=== PATIENT | male | born 1955 | race African-American/Black ===

== ENCOUNTER 2019-05-27 16:37 | Inpatient (IN) ==
[2019-05-27] MEDS ORDERED: 0.9 % Sodium Chloride 500 ML IVC ONE (16:43)
[2019-05-27] MEDS ORDERED: Ondansetron 4 MG/2 ML VIAL IVP ONE (16:43)
[2019-05-27 17:30] LABS: Basophils % 0.3 %; Eosinophils % 0.5 %; Hematocrit 22.2 % (37.5-50.1); Hemoglobin 6.8 g/dL (12.9-16.9); Immature Granulocytes % 0.7 % (0-4); Lymphocytes # 0.9 K/mcL (0.6-4.6); Mean Corpuscular HGB Conc 30.6 g/dL (31.6-35.5); Mean Corpuscular Hemoglobin 29.7 pg (28.0-33.3); Mean Corpuscular Volume 96.9 fL (83.0-100.0); Mean Platelet Volume 11.9 fL (9.4-12.4); Monocytes # 0.4 K/mcL (0.0-1.3); Monocytes % 5.9 %; Neutrophils # 4.5 K/mcL (1.6-8.9); Nucleated Red Blood Cells 1.7 /100 WBC (0); Platelet Count 231 K/mcL (140-400); Red Blood Count 2.29 M/mcL (4.19-5.50); Red Cell Distribution Width 18.4 % (11.5-14.5); Segmented Neutrophils % 76.6 %; White Blood Count 5.9 K/mcL (4.3-11.1)
[2019-05-27] MEDS ORDERED: *HR* Midazolam HCl 2 MG/2 ML VIAL IVP ONE (17:42)
[2019-05-27 17:53] LABS: Alanine Aminotransferase 21 Units/L (7-52); Albumin 3.7 g/dL (3.5-5.7); Albumin/Globulin Ratio 1.1 (1.1-2.2); Alkaline Phosphatase 61 Units/L (34-104); Aspartate Amino Transferase 19 Units/L (13-39); BUN/Creatinine Ratio 29 (6-26); Bilirubin,Direct 0.9 mg/dL (0.0-0.2); Bilirubin,Indirect 2.9 mg/dL (0.0-1.0); Bilirubin,Total 3.8 mg/dL (0.3-1.0); Blood Urea Nitrogen 32 mg/dL (8-23); Carbon Dioxide 15 mEq/L (23-29); Chloride 102 mEq/L (98-107); Globulin 3.5 g/dL (2.4-3.5); Glucose 140 mg/dL (70-105); Lipase 20 Units/L (11-82); Osmolality,Calculated 287 (280-300); Potassium 3.3 mEq/L (3.5-5.1); Sodium 134 mEq/L (136-145); Total Protein 7.2 g/dL (6.4-8.9); Troponin I < 0.03 ng/mL (< 0.04); eGFR For African Americans > 60 (> 60); eGFR For Non-African Americans > 60 (> 60)
[2019-05-27] MEDS ORDERED: cefTRIAXone 1,000 MG in Water for inj. (sterile) 10 ML IVP ONE (20:08)
[2019-05-27] MEDS ORDERED: Azithromycin 500 MG in D5% in Water 250 ML IVPB ONE (20:08)
[2019-05-27] MEDS ORDERED: Naloxone 0.4 MG/ML INJ IVP PRN (23:16)
[2019-05-27] MEDS ORDERED: Albuterol 2.5 MG/3 ML NEBULIZER IH PRN (23:16)
[2019-05-27 23:30] LABS: INR 1.3; Prothrombin Time 14.4 Seconds (9.4-12.1)
[2019-05-27 23:32] LABS: Activated Partial Thrombo Time 25.8 Seconds (26.0-36.0)
[2019-05-27] MEDS ORDERED: *HR* LORazepam 2 MG/ML VIAL IVP PRN ×3 (23:38)
[2019-05-28 00:28] LABS: Immature Reticulocyte % 30.5 % (11.0-38.0); Retculocyte # 0.15 M/mcL (0.05-0.10); Reticulocyte % 7.1 % (1.6-2.8)
[2019-05-28 00:30] LABS: Basophils % 0.2 %; Eosinophils % 0.4 %; Hematocrit 20.4 % (37.5-50.1); Hemoglobin 6.2 g/dL (12.9-16.9); Immature Granulocytes % 0.6 % (0-4); Mean Corpuscular HGB Conc 30.4 g/dL (31.6-35.5); Mean Corpuscular Hemoglobin 29.1 pg (28.0-33.3); Mean Corpuscular Volume 95.8 fL (83.0-100.0); Mean Platelet Volume 11.6 fL (9.4-12.4); Monocytes # 0.3 K/mcL (0.0-1.3); Monocytes % 6.7 %; Neutrophils # 3.4 K/mcL (1.6-8.9); Nucleated Red Blood Cells 1.5 /100 WBC (0); Platelet Count 200 K/mcL (140-400); Red Blood Count 2.13 M/mcL (4.19-5.50); Red Cell Distribution Width 18.4 % (11.5-14.5); Segmented Neutrophils % 72.1 %; White Blood Count 4.8 K/mcL (4.3-11.1)
[2019-05-28] MEDS ORDERED: 0.9 % Sodium Chloride 250 ML ONE ×2 (00:35→10:07)
[2019-05-28 00:45] LABS: % Iron Saturation 20 % (20-55); Iron 64 mcg/dL (65-175); Lactate Dehydrogenase 158 Units/L (140-271); Transferrin 233 mg/dL (203-362)
[2019-05-28 01:03] LABS: Ferritin 32 ng/mL (20-250)
[2019-05-28 01:08] LABS: Folate 6.3 ng/mL (3.0-16.0)
[2019-05-28 01:28] LABS: Hepatitis B Surface Antigen Nonreactive (Nonreactive)
[2019-05-28] MEDS ORDERED: Potassium Chloride Elixir 20 MEQ/15 ML UDC PO ONE (01:41)
[2019-05-28 01:59] LABS: Hepatitis A Antibody IgM Nonreactive (Nonreactive)
[2019-05-28] MEDS: Pantoprazole 40 MG VIAL IVP SCH ×2 (01:59→16:49)
[2019-05-28 02:00] LABS: Hepatitis C Virus Antibody Nonreactive (Nonreactive)
[2019-05-28 02:01] LABS: Hepatitis B Core IgM Nonreactive (Nonreactive)
[2019-05-28 02:35] LABS: Bilirubin,Urine Small (Negative); Blood,Urine Negative (Negative); Clarity,Urine Clear (Clear); Color,Urine Orange (Yellow); Glucose,Urine (UA) Normal (Normal); Ketones,Urine Negative (Negative); Leukocyte Esterase,Urine Negative (Negative); Nitrite,Urine Negative (Negative); Protein,Urine Negative (Neg-Trace); Specific Gravity,Urine 1.019 (1.010-1.025)
[2019-05-28 02:51] LABS: Amphetamine Screen,Urine Negative ng/mL (Cutoff=1000); Barbiturate Screen,Urine Negative ng/mL (Cutoff=200); Benzodiazepines Screen,Urine Positive ng/mL (Cutoff=200); Cannabinoid Screen,Urine Negative ng/mL (Cutoff = 50); Cocaine Screen,Urine Negative ng/mL (Cutoff= 300); Opiate Screen,Urine Negative ng/mL (Cutoff=300); Phencyclidine Screen,Urine Negative ng/mL (Cutoff=25)
[2019-05-28] MEDS: Ipratropium/Albuterol Neb 3 ML IH SCH ×6 (04:50→22:35)
[2019-05-28 05:35] LABS: Basophils % 0.2 %; Eosinophils % 0.5 %; Hematocrit 22.9 % (37.5-50.1); Immature Granulocytes % 0.7 % (0-4); Lymphocytes # 0.9 K/mcL (0.6-4.6); Lymphocytes % 21.3 %; Mean Corpuscular HGB Conc 30.6 g/dL (31.6-35.5); Mean Corpuscular Hemoglobin 29.2 pg (28.0-33.3); Mean Corpuscular Volume 95.4 fL (83.0-100.0); Mean Platelet Volume 11.1 fL (9.4-12.4); Monocytes # 0.3 K/mcL (0.0-1.3); Monocytes % 8.2 %; Neutrophils # 2.8 K/mcL (1.6-8.9); Nucleated Red Blood Cells 1.5 /100 WBC (0); Platelet Count 156 K/mcL (140-400); Red Cell Distribution Width 17.7 % (11.5-14.5); Segmented Neutrophils % 69.1 %
[2019-05-28 05:56] LABS: Alanine Aminotransferase 18 Units/L (7-52); Albumin 3.3 g/dL (3.5-5.7); Albumin/Globulin Ratio 1.1 (1.1-2.2); Alkaline Phosphatase 53 Units/L (34-104); Aspartate Amino Transferase 15 Units/L (13-39); BUN/Creatinine Ratio 26 (6-26); Bilirubin,Total 3.3 mg/dL (0.3-1.0); Blood Urea Nitrogen 26 mg/dL (8-23); Calcium 8.5 mg/dL (8.6-10.3); Carbon Dioxide 19 mEq/L (23-29); Chloride 107 mEq/L (98-107); Globulin 3.1 g/dL (2.4-3.5); Glucose 119 mg/dL (70-105); Magnesium 2.3 mg/dL (1.6-2.6); Osmolality,Calculated 286 (280-300); Phosphorous 2.5 mg/dL (2.7-4.5); Potassium 3.8 mEq/L (3.5-5.1); Sodium 135 mEq/L (136-145); Total Protein 6.4 g/dL (6.4-8.9); eGFR For African Americans > 60 (> 60); eGFR For Non-African Americans > 60 (> 60)
[2019-05-28] MEDS ORDERED: Potassium Phosphate 44 MEQ in 0.9 % Sodium Chloride 250 ML IVPB ONE (07:39)
[2019-05-28] MEDS ORDERED: 0.9 % Sodium Chloride 1,000 ML IVC SCH (07:45)
[2019-05-28] MEDS ORDERED: Azithromycin 250 MG TABLET PO SCH (09:00)
[2019-05-28] MEDS: Vitamin B Complex/Vit C/Vit E 1 EACH TABLET PO SCH (10:48)
[2019-05-28] MEDS: Folic Acid 1 MG TABLET PO SCH (10:48)
[2019-05-28] MEDS: Thiamine (B-1) 100 MG TABLET PO SCH (10:48)
[2019-05-28] MEDS: Sodium Ferric Gluconat/Sucrose 125 MG in 0.9 % Sodium Chloride 100 ML IVPB SCH (10:48)
[2019-05-28] MEDS: cefTRIAXone 1,000 MG in Water for inj. (sterile) 10 ML IVP SCH (10:49)
[2019-05-28] MEDS: Cyanocobalamin (B-12) 1,000 MCG/ML VIAL SQ SCH (10:49)
[2019-05-28] MEDS: Nicotine 14 MG PATCH.TD24 TD SCH (10:49)
[2019-05-28] MEDS: MethylPREDNISolone 40 MG/ML VIAL IVP SCH ×2 (10:51→16:49)
[2019-05-28 12:10] LABS: Estimated Average Glucose 97 mg/dl
[2019-05-28 15:05] LABS: Hematocrit 27.5 % (37.5-50.1)
[2019-05-28 15:06] LABS: Hemoglobin 8.6 g/dL (12.9-16.9)
[2019-05-28] MEDS: chlorproMAZINE 25 MG TABLET PO SCH ×2 (18:46→22:09)
[2019-05-28 20:08] LABS: Hematocrit 27.1 % (37.5-50.1); Hemoglobin 8.9 g/dL (12.9-16.9)
[2019-05-29] MEDS: Ipratropium/Albuterol Neb 3 ML IH SCH ×4 (04:03→22:59)
[2019-05-29] MEDS: MethylPREDNISolone 40 MG/ML VIAL IVP SCH ×2 (05:14→17:38)
[2019-05-29] MEDS: Pantoprazole 40 MG VIAL IVP SCH ×2 (05:14→17:38)
[2019-05-29 05:15] LABS: Alanine Aminotransferase 16 Units/L (7-52); Albumin 3.1 g/dL (3.5-5.7); Albumin/Globulin Ratio 1.1 (1.1-2.2); Alkaline Phosphatase 48 Units/L (34-104); Aspartate Amino Transferase 13 Units/L (13-39); BUN/Creatinine Ratio 19 (6-26); Bilirubin,Total 1.9 mg/dL (0.3-1.0); Blood Urea Nitrogen 16 mg/dL (8-23); Calcium 8.3 mg/dL (8.6-10.3); Carbon Dioxide 19 mEq/L (23-29); Chloride 105 mEq/L (98-107); Globulin 2.9 g/dL (2.4-3.5); Glucose 161 mg/dL (70-105); Osmolality,Calculated 279 (280-300); Sodium 132 mEq/L (136-145); eGFR For African Americans > 60 (> 60); eGFR For Non-African Americans > 60 (> 60)
[2019-05-29 07:18] LABS: Hematocrit 23.5 % (37.5-50.1); Hemoglobin 7.8 g/dL (12.9-16.9); Mean Corpuscular HGB Conc 33.2 g/dL (31.6-35.5); Mean Corpuscular Hemoglobin 29.7 pg (28.0-33.3); Mean Corpuscular Volume 89.4 fL (83.0-100.0); Mean Platelet Volume 11.9 fL (9.4-12.4); Platelet Count 150 K/mcL (140-400); Red Blood Count 2.63 M/mcL (4.19-5.50); Red Cell Distribution Width 18.5 % (11.5-14.5); White Blood Count 3.9 K/mcL (4.3-11.1)
[2019-05-29] MEDS: Sodium Ferric Gluconat/Sucrose 125 MG in 0.9 % Sodium Chloride 100 ML IVPB SCH (08:53)
[2019-05-29] MEDS: cefTRIAXone 1,000 MG in Water for inj. (sterile) 10 ML IVP SCH (08:54)
[2019-05-29] MEDS: Nicotine 14 MG PATCH.TD24 TD SCH (08:55)
[2019-05-29] MEDS: 0.9 % Sodium Chloride 1,000 ML IVC SCH ×2 (08:55→17:38)
[2019-05-29] MEDS: chlorproMAZINE 25 MG TABLET PO SCH ×3 (08:55→20:43)
[2019-05-29] MEDS: Thiamine (B-1) 100 MG TABLET PO SCH (08:55)
[2019-05-29] MEDS: Folic Acid 1 MG TABLET PO SCH (08:55)
[2019-05-29] MEDS: Vitamin B Complex/Vit C/Vit E 1 EACH TABLET PO SCH (08:55)
[2019-05-29] MEDS: Cyanocobalamin (B-12) 1,000 MCG/ML VIAL SQ SCH (09:02)
[2019-05-29 15:04] LABS: Hematocrit 24.1 % (37.5-50.1)
[2019-05-29] MEDS ORDERED: 0.9 % Sodium Chloride 500 ML IVC ONE (17:33)
[2019-05-30] MEDS: Ipratropium/Albuterol Neb 3 ML IH SCH ×4 (04:26→23:17)
[2019-05-30 04:58] LABS: Hematocrit 23.4 % (37.5-50.1); Hemoglobin 7.5 g/dL (12.9-16.9); Immature Granulocytes % 4.2 % (0-4); Lymphocytes # 0.8 K/mcL (0.6-4.6); Lymphocytes % 15.8 %; Mean Corpuscular HGB Conc 32.1 g/dL (31.6-35.5); Mean Corpuscular Hemoglobin 29.2 pg (28.0-33.3); Mean Corpuscular Volume 91.1 fL (83.0-100.0); Mean Platelet Volume 11.4 fL (9.4-12.4); Monocytes # 0.5 K/mcL (0.0-1.3); Monocytes % 10.7 %; Neutrophils # 3.5 K/mcL (1.6-8.9); Nucleated Red Blood Cells 5.7 /100 WBC (0); Platelet Count 149 K/mcL (140-400); Red Blood Count 2.57 M/mcL (4.19-5.50); Red Cell Distribution Width 18.8 % (11.5-14.5); Segmented Neutrophils % 69.3 %; White Blood Count 5.1 K/mcL (4.3-11.1)
[2019-05-30 05:25] LABS: Alanine Aminotransferase 21 Units/L (7-52); Albumin 2.7 g/dL (3.5-5.7); Albumin/Globulin Ratio 1.1 (1.1-2.2); Alkaline Phosphatase 42 Units/L (34-104); Aspartate Amino Transferase 21 Units/L (13-39); BUN/Creatinine Ratio 16 (6-26); Bilirubin,Total 1.3 mg/dL (0.3-1.0); Blood Urea Nitrogen 11 mg/dL (8-23); Calcium 7.9 mg/dL (8.6-10.3); Carbon Dioxide 19 mEq/L (23-29); Chloride 109 mEq/L (98-107); Globulin 2.4 g/dL (2.4-3.5); Glucose 144 mg/dL (70-105); Osmolality,Calculated 280 (280-300); Potassium 3.9 mEq/L (3.5-5.1); Sodium 134 mEq/L (136-145); Total Protein 5.1 g/dL (6.4-8.9); eGFR For African Americans > 60 (> 60); eGFR For Non-African Americans > 60 (> 60)
[2019-05-30] MEDS: Pantoprazole 40 MG VIAL IVP SCH ×2 (07:00→18:23)
[2019-05-30] MEDS: MethylPREDNISolone 40 MG/ML VIAL IVP SCH ×2 (07:01→18:23)
[2019-05-30 08:02] LABS: Potassium,Urine 25.8 mEq/L; Sodium, Urine 77.8 mEq/L
[2019-05-30] MEDS: chlorproMAZINE 25 MG TABLET PO SCH ×3 (09:13→20:20)
[2019-05-30] MEDS: cefTRIAXone 1,000 MG in Water for inj. (sterile) 10 ML IVP SCH (09:13)
[2019-05-30] MEDS: Thiamine (B-1) 100 MG TABLET PO SCH (09:13)
[2019-05-30] MEDS: Folic Acid 1 MG TABLET PO SCH (09:13)
[2019-05-30] MEDS: Cyanocobalamin (B-12) 1,000 MCG/ML VIAL SQ SCH (09:13)
[2019-05-30] MEDS: Vitamin B Complex/Vit C/Vit E 1 EACH TABLET PO SCH (09:14)
[2019-05-30] MEDS: Nicotine 14 MG PATCH.TD24 TD SCH (09:14)
[2019-05-30] MEDS: Sodium Ferric Gluconat/Sucrose 125 MG in 0.9 % Sodium Chloride 100 ML IVPB SCH (09:24)
[2019-05-30 14:28] LABS: Hematocrit 25.1 % (37.5-50.1); Hemoglobin 8.3 g/dL (12.9-16.9)
[2019-05-31] MEDS: Ipratropium/Albuterol Neb 3 ML IH SCH ×2 (03:25→11:45)
[2019-05-31] MEDS: MethylPREDNISolone 40 MG/ML VIAL IVP SCH ×2 (05:39→18:36)
[2019-05-31] MEDS: Pantoprazole 40 MG VIAL IVP SCH ×2 (05:39→18:36)
[2019-05-31 07:41] LABS: Basophils % 0.2 %; Hematocrit 28.4 % (37.5-50.1); Hemoglobin 9.1 g/dL (12.9-16.9); Immature Granulocytes % 4.7 % (0-4); Lymphocytes # 0.8 K/mcL (0.6-4.6); Lymphocytes % 16.6 %; Mean Corpuscular Hemoglobin 29.6 pg (28.0-33.3); Mean Corpuscular Volume 92.5 fL (83.0-100.0); Mean Platelet Volume 11.4 fL (9.4-12.4); Monocytes # 0.5 K/mcL (0.0-1.3); Monocytes % 10.3 %; Neutrophils # 3.3 K/mcL (1.6-8.9); Nucleated Red Blood Cells 2.1 /100 WBC (0); Platelet Count 159 K/mcL (140-400); Red Blood Count 3.07 M/mcL (4.19-5.50); Red Cell Distribution Width 19.8 % (11.5-14.5); Segmented Neutrophils % 68.2 %; White Blood Count 4.9 K/mcL (4.3-11.1)
[2019-05-31] MEDS ORDERED: cefTRIAXone 1,000 MG in 0.9 % Sodium Chloride Mini Bag 100 ML IVPB SCH (09:00)
[2019-05-31] MEDS: Vitamin B Complex/Vit C/Vit E 1 EACH TABLET PO SCH (09:08)
[2019-05-31] MEDS: Folic Acid 1 MG TABLET PO SCH (09:08)
[2019-05-31] MEDS: Thiamine (B-1) 100 MG TABLET PO SCH (09:09)
[2019-05-31] MEDS: chlorproMAZINE 25 MG TABLET PO SCH (09:09)
[2019-05-31] MEDS: Cyanocobalamin (B-12) 1,000 MCG/ML VIAL SQ SCH (09:15)
[2019-05-31] MEDS: Sodium Ferric Gluconat/Sucrose 125 MG in 0.9 % Sodium Chloride 100 ML IVPB SCH (09:36)
[2019-05-31] MEDS: Nicotine 14 MG PATCH.TD24 TD SCH (09:37)
[2019-05-31] MEDS ORDERED: Tetracaine/Benzocaine/Butamben 1 SPRAY AEROSOL MM ONE (10:07)
[2019-05-31] MEDS ORDERED: 0.9 % Sodium Chloride 1,000 ML IVC SCH (10:15)
[2019-05-31] MEDS ORDERED: Propofol 500 MG/50 ML INFUS..BTL ONE (10:25)
[2019-05-31] MEDS ORDERED: chlorproMAZINE 25 MG TABLET PO PRN (11:11)
[2019-05-31] MEDS ORDERED: Fluconazole 100 MG TABLET PO ONE (12:20)
[2019-05-31] MEDS: Sucralfate 1 GM TABLET PO SCH ×3 (13:54→21:30)
[2019-06-01 04:49] LABS: Hematocrit 25.5 % (37.5-50.1); Hemoglobin 8.1 g/dL (12.9-16.9); Mean Corpuscular HGB Conc 31.8 g/dL (31.6-35.5); Mean Corpuscular Hemoglobin 30.5 pg (28.0-33.3); Mean Corpuscular Volume 95.9 fL (83.0-100.0); Mean Platelet Volume 11.1 fL (9.4-12.4); Platelet Count 136 K/mcL (140-400); Red Blood Count 2.66 M/mcL (4.19-5.50); Red Cell Distribution Width 20.9 % (11.5-14.5); White Blood Count 4.5 K/mcL (4.3-11.1)
[2019-06-01 05:10] LABS: BUN/Creatinine Ratio 12 (6-26); Blood Urea Nitrogen 8 mg/dL (8-23); Calcium 8.7 mg/dL (8.6-10.3); Carbon Dioxide 21 mEq/L (23-29); Chloride 103 mEq/L (98-107); Glucose 147 mg/dL (70-105); Osmolality,Calculated 277 (280-300); Potassium 3.9 mEq/L (3.5-5.1); Sodium 133 mEq/L (136-145); eGFR For African Americans > 60 (> 60); eGFR For Non-African Americans > 60 (> 60)
[2019-06-01] MEDS: Pantoprazole 40 MG VIAL IVP SCH (06:10)
[2019-06-01 07:47] VITALS: BP 134/76
[2019-06-01] MEDS: Vitamin B Complex/Vit C/Vit E 1 EACH TABLET PO SCH (08:58)
[2019-06-01] MEDS: Thiamine (B-1) 100 MG TABLET PO SCH (08:58)
[2019-06-01] MEDS: Nicotine 14 MG PATCH.TD24 TD SCH (08:58)
[2019-06-01] MEDS: MethylPREDNISolone 40 MG/ML VIAL IVP SCH (08:58)
[2019-06-01] MEDS: Cyanocobalamin (B-12) 1,000 MCG/ML VIAL SQ SCH (08:58)
[2019-06-01] MEDS: Sucralfate 1 GM TABLET PO SCH (08:59)
[2019-06-01] MEDS: Folic Acid 1 MG TABLET PO SCH (08:59)
[2019-06-01] MEDS ORDERED: Cefdinir 300 MG CAPSULE PO SCH (09:00)
[2019-06-01] MEDS ORDERED: Fluconazole 100 MG TABLET PO SCH (09:00)
== END 2019-06-01 13:22 | disposition home or self-care (01) | DRG 871 ==
LOC: EMEROOARM 16:37 → 2ANU 16:37 → SUATTDRO 21:47 → 2ANU 22:19 → SUATTDRO 05-30 15:22
PROVIDERS: ADMIT Family Medicine; ATTEND Student in an Organized Health Care Education/Training Program
PROC: ENDOEBX (2019-05-31 15:00)